=== PATIENT | female | born 1965 | race Two or more races ===

== ENCOUNTER 2021-09-27 11:29 | Outpatient (CLI) | payer MEDICAID | END 2021-09-27 23:59 | disposition home or self-care (01) | LOC: LAB 11:29 | PROVIDERS: ATTEND Specialist | DX: Z01.812 Encounter for preprocedural laboratory examination (principal); Z20.828 Contact with and (suspected) exposure to other viral communicable diseases | CPT/HCPCS: C9803; U0003 ==

== ENCOUNTER 2021-10-04 05:07 | Inpatient (IN) | payer MEDICAID ==
[~2021-10-04] VITALS: Ht 167.6 cm; Wt 77.1 kg
--- NOTE | 2021-10-04 05:50 | NUR ---
RN NOTE RECEIVED PT FOR DAY SURGERY FOR R-SHOULDER PROCEDURE. PT A/OX4. DENIES PAIN. DENIES SOB. ON ROOM AIR. AMBULATORY WITH STEADY GAIT. PREOP DONE. STARTED IV R-AC#20G WITH GOOD BLOOD RETURN. PT VERBALIZED UNDERSTANDING OF PROCEDURE AND SIGNED CONSENTS. ALL BELONGINGS RECORDED. PT IN NO ACUTE DISTRESS.
[2021-10-04] MEDS ORDERED: EPINEPHRINE (1:1000) 1 MG/ML AMPUL ONE (06:21)
[2021-10-04] MEDS ORDERED: BUPIVACAINE 0.5 % PF 150 MG/30 ML VIAL ONE (06:21)
[2021-10-04] MEDS ORDERED: ANESTHESIA TRAY IN PYXIS 1 EA TRAY MC ONE (06:22)
--- NOTE | 2021-10-04 06:25 | NUR ---
RN NOTE PT PICKED UP BY OR STAFF
[2021-10-04] MEDS ORDERED: FENTANYL PF 250MCG/5ML AMPUL ONE (06:34)
[2021-10-04] MEDS ORDERED: ROCURONIUM BROMIDE 50 MG/5 ML ONE (06:35)
[2021-10-04] MEDS ORDERED: HYDROMORPHONE 1 MG/1 ML DISP.SYRIN ONE (08:35)
[2021-10-04] MEDS ORDERED: FENTANYL PF 100MCG/2ML AMPUL ONE (09:06)
[2021-10-04] MEDS ORDERED: SENNOSIDES 8.6 MG TABLET PO PRN (09:30)
[2021-10-04] MEDS ORDERED: ACETAMINOPHEN 325 MG TABLET PO PRN ×2 (09:30→17:00)
[2021-10-04] MEDS ORDERED: DOCUSATE SODIUM 250 MG CAPSULE PO PRN (09:30)
[2021-10-04] MEDS ORDERED: BISACODYL SUPP (10 MG) 10 MG/SUPP.RECT SUPP.RECT RC PRN (09:30)
[2021-10-04] MEDS ORDERED: ZOLPIDEM TARTRATE 5 MG TABLET PO PRN (09:30)
--- NOTE | 2021-10-04 09:56 | NUR ---
MS/GLOBAL ACCOUNT MANAGER NOTES RECEIVED PATIENT VIA LAURITA, DID BEDSIDE ENDORSEMENT WITH MARIANA, OR NURSE. PATIENT IS S/P RIGHT SHOULDER ARTHROSCOPY WITH DR. NUÑEZ. RECEIVED PATIENT ALERT AND ORIENTED X4, ABLE TO MAKE NEEDS KNOWN. SLEEPY, BUT RESPONSIVE TO NAME, AND ABLE TO ANSWER QUESTIONS. RECEIVED ON 3LPM OF OXYGEN VIA NASAL CANNULA, I TITRATED TO 2 LPM. NO DISTRESS NOTED, PATIENT HAS NO DISCOMFORTS AT THIS TIME. V/S TAKEN FOLLOWS: BP-139/88, HR-74, RR-18, T-97.3, O2 SAT AT 100% ON 2 LPM. ORIENTED PATIENT TO THE UNIT. SAFETY MEASURES IN PLACED: BED LOCKED ON LOWEST POSITION, SIDE RAILS UPX2, CALL LIGHT AND TABLE WITHIN EASY REACH. WILL CONTINUE TO MONITOR.
[2021-10-04] MEDS: HYDROCODONE/APAP 5/325MG TABLET PO PRN ×3 (13:09→21:21)
[2021-10-04 16:00] VITALS: BP 123/74
[2021-10-04] MEDS ORDERED: OMEP20CA15 PO (16:07)
[2021-10-04] MEDS ORDERED: MELO-105 PO (16:07)
[2021-10-04] MEDS ORDERED: BUPR-319 PO (16:07)
[2021-10-04] MEDS ORDERED: GABA600T12 PO (16:07)
[2021-10-04] MEDS ORDERED: BUPR-54 PO (16:07)
[2021-10-04] MEDS ORDERED: Z GUARD REMEDY 4 OZ OINT TP PRN (17:00)
[2021-10-04] MEDS ORDERED: ONDANSETRON HCL/PF 4 MG/2 ML VIAL IVP PRN (17:00)
[2021-10-04] MEDS ORDERED: OMEPRAZOLE 20 MG CAPSULE.DR PO SCH (17:00)
[2021-10-04] MEDS ORDERED: MAG HYDROX/AL HYDROX/SIMETH 30 ML UDC PO PRN (17:00)
[2021-10-04] MEDS: PANTOPRAZOLE 40 MG TABLET.DR PO SCH (17:17)
[2021-10-04] MEDS: ONDANSETRON HCL/PF 4 MG/2 ML VIAL IVP PRN ×2 (17:30→21:35)
--- NOTE | 2021-10-04 19:25 | NUR ---
MS/RN OPENING NOTE RECEIVED PATIENT RESTING IN BED. AWAKE, ALERT AND ORIENTED X 4. ABLE TO MAKE NEEDS KNOWN. DENIES PAIN AT THIS TIME. CONTINUES ON ROOM AIR WITH NO S/SX OF RESPIRATORY DISTRESS NOTED. IV ACCESS TO LEFT HAND #20G INTACT, PATENT AND SALINE LOCKED. RIGHT SHOULDER SURGICAL SITE DRESSING CLEAN, DRY AND INTACT. SLING IN PLACE. CONTINUES ON REGULAR DIET WITH NO S/SX OF ASPIRATION OR N/V. CALL LIGHT WITHIN REACH. ASPIRATION, FALL AND SAFETY PRECAUTIONS MAINTAINED. WILL CONTINUE TO MONITOR.
--- NOTE | 2021-10-04 19:31 | NUR ---
MS/RN CLOSING NOTES PATIENT IN BED, A/OX4, ABLE TO MAKE NEEDS KNOWN. STABLE ON ROOM AIR. PATIENT IS S/P RIGHT SHOULDER ARTHROSCOPY WITH DR. NUÑEZ. IN NO DISTRESS NOTED, PATIENT HAS NO DISCOMFORTS AT THIS TIME. SURGICAL SIGHT ON RIGHT SHOULDER-DRESSING IS CLEAN, DRY AND INTACT. ALL NEEDS MET. KEPT PATIENT COMFORTABLE ALL THROUGHOUT THE SHIFT. SAFETY MEASURES IN PLACED: BED LOCKED ON LOWEST POSITION, SIDE RAILS UPX2, CALL LIGHT AND TABLE WITHIN EASY REACH. WILL ENDORSE TO THE NEXT SHIFT FOR ROGER.
[2021-10-04 20:00] VITALS: BP 113/72
[2021-10-04 20:20] LABS: CALCIUM, SERUM 8.3 mg/dL (8.5-10.1); CREATININE 0.8 mg/dL (0.6-1.3); POTASSIUM 4.1 mmol/L (3.5-5.1)
[2021-10-04] MEDS: IV D5/0.45 NACL 1,000 ML IV PRN (21:19)
[2021-10-04] MEDS ORDERED: MAGNESIUM HYDROXIDE 30 ML UDC PO PRN (22:00)
[2021-10-05] MEDS: HYDROCODONE/APAP 5/325MG TABLET PO PRN ×3 (01:48→10:27)
[2021-10-05] MEDS: IV D5/0.45 NACL 1,000 ML IV PRN (05:43)
--- NOTE | 2021-10-05 06:15 | NUR ---
MS/RN CLOSING NOTE PATIENT CURRENTLY RESTING IN BED. AWAKE, ALERT AND ORIENTED X 4. ABLE TO MAKE NEEDS KNOWN. DENIES PAIN AT THIS TIME. CONTINUES ON ROOM AIR WITH NO S/SX OF RESPIRATORY DISTRESS NOTED. IV ACCESS TO LEFT HAND #20G INTACT AND PATENT. CONTINUES ON IVF D5 1/2 NS @ 125ML/HR. RIGHT SHOULDER SURGICAL SITE DRESSING CLEAN, DRY AND INTACT. SLING IN PLACE. CONTINUES ON REGULAR DIET WITH NO S/SX OF ASPIRATION OR N/V. CALL LIGHT WITHIN REACH. ASPIRATION, FALL AND SAFETY PRECAUTIONS MAINTAINED. WILL ENDORSE PLAN OF CARE TO ONCOMING SHIFT.
[2021-10-05 07:01] LABS: BASOPHILS % (AUTO) 0.4 % (0.0-2.0); EOSINOPHILS % (AUTO) 1.4 % (0.0-6.0); HEMATOCRIT 31 % (33-45); HEMOGLOBIN 10.2 g/dL (11.5-14.8); LYMPHOCYTES # (AUTO) 2.2 K/uL (0.8-4.8); LYMPHOCYTES % (AUTO) 34.6 % (20.0-44.0); MEAN CORPUSCULAR HGB CONC 33 g/dl (31.0-36.0); MEAN CORPUSCULAR VOLUME 83 fL (82-100); MONOCYTES # (AUTO) 0.5 K/uL (0.1-1.30); MONOCYTES % (AUTO) 7.6 % (2.0-12.0); NEUTROPHILS # (AUTO) 3.5 K/uL (1.8-8.9); PLATELET COUNT (AUTO) 301 K/uL (150-450); RED BLOOD CELL COUNT(AUTO) 3.79 MIL/uL (4.0-5.2); WHITE BLOOD COUNT (AUTO) 6.2 K/uL (4.3-11.0)
[2021-10-05 07:20] LABS: CALCIUM, SERUM 8.3 mg/dL (8.5-10.1); CREATININE 0.8 mg/dL (0.6-1.3); PHOSPHORUS 4.1 mg/dL (2.5-4.9); POTASSIUM 3.8 mmol/L (3.5-5.1)
--- NOTE | 2021-10-05 07:44 | NUR ---
MS RN OPENING NOTE PATIENT CURRENTLY RESTING IN BE, AROUSABLE BY NAME TO A/O X 4. TOLERATING WELL ON ROOM AIR WITH NO S/S OF RESPIRATORY DISTRESS. BREATHING EVEN AND UNLABORED WITH NO COMPLAINTS OF PAIN OR DISCOMFORT AT THIS TIME. L HAND # 20 G IV CLEAN, INTACT AND FLUSHING WELL WITH D5 1/2 NS @ 125ML/HR. RIGHT SHOULDER SURGICAL SITE DRESSING CLEAN, DRY AND INTACT. SLING IN PLACE. CONTINUES ON REGULAR DIET WITH NO S/SX OF ASPIRATION OR N/V. CALL LIGHT WITHIN REACH, SIDE RAILS UP X 2, BED IN LOWEST LOCKED POSITION. ASPIRATION, FALL AND SAFETY PRECAUTIONS MAINTAINED. WILL CONTINUE TO MONITOR.
[2021-10-05] MEDS: GABAPENTIN 300 MG CAPSULE PO SCH ×2 (08:38→13:04)
[2021-10-05] MEDS: PANTOPRAZOLE 40 MG TABLET.DR PO SCH (08:40)
[2021-10-05] MEDS ORDERED: Medication Not On Formulary EA (Bupropion Hcl (Bupropion Xl) 1 TAB) PO SCH (09:00)
[2021-10-05] MEDS ORDERED: BUPROPION XL 150 MG TAB.ER.24 PO SCH ×2 (09:00)
--- NOTE | 2021-10-05 10:31 | NUR ---
MS RN NOTE PATIENT COMPLAINT OF 03/25 RIGHT SHOULDER PAIN AND REQUESTING MEDICATION. PRN NORCO 5/325 TWO TABS PO ADMINISTERED ORDERED. WILL CONTINUE TO MONITOR FOR S/S OF PAIN.
--- NOTE | 2021-10-05 14:10 | NUR ---
MS RAG COLLECTOR NOTES PATIENT MADE AWARE OF MD DISCHARGE INSTRUCTIONS AND CONFIRMED UNDERSTANDING VERBALLY AND VIA SIGNATURE. PATIENT VERBALIZED POSSESSION OF ALL BELONGINGS AND CONFIRMED VIA SIGNATURE. EDUCATION PROVIDED ON ALL MEDICATIONS INCLUDING NAMES, DOSAGES, ROUTES, FREQUENCIES, INDICATIONS AND SIDE EFFECTS. PATIENT VERBALIZED UNDERSTANDING. SALINE LOCK AND ID BAND REMOVED. ALL DISCHARGE PAPERWORK PROVIDED TO PATIENT. PATIENT VITAL SIGNS STABLE AND NO COMPLAINTS OF PAIN OR DISCOMFORT AT THIS TIME. PATIENT TRANSPORTED OFF OF FLOOR VIA WHEELCHAIR BY QUALITY CONTROL.
== END 2021-10-05 14:30 | disposition home or self-care (01) | DRG 315 ==
LOC: DS 05:07 → MED 05:15
PROVIDERS: ADMIT Internal Medicine; ATTEND Internal Medicine
PROC: 0LQ14ZZ Repair Right Shoulder Tendon, Percutaneous Endoscopic Approach (ICD-10-PCS; principal; 2021-10-04)
PROC: 0MB14ZZ Excision of Right Shoulder Bursa and Ligament, Percutaneous Endoscopic Approach (ICD-10-PCS; 2021-10-04)
PROC: 0RCJ4ZZ Extirpation of Matter from Right Shoulder Joint, Percutaneous Endoscopic Approach (ICD-10-PCS; 2021-10-04)
PROC: 0RNJ4ZZ Release Right Shoulder Joint, Percutaneous Endoscopic Approach (ICD-10-PCS; 2021-10-04)
PROC: 0PB94ZZ Excision of Right Clavicle, Percutaneous Endoscopic Approach (ICD-10-PCS; 2021-10-04)
DX: M19.111 Post-traumatic osteoarthritis, right shoulder (principal); D64.9 Anemia, unspecified; E66.9 Obesity, unspecified; S46.011A Strain of muscle(s) and tendon(s) of the rotator cuff of right shoulder, initial encounter; G62.9 Polyneuropathy, unspecified; G89.4 Chronic pain syndrome; M75.51 Bursitis of right shoulder; X58.XXXA Exposure to other specified factors, initial encounter; Y93.9 Activity, unspecified; Y92.009 Unspecified place in unspecified non-institutional (private) residence as the place of occurrence of the external cause; M75.41 Impingement syndrome of right shoulder; M75.01 Adhesive capsulitis of right shoulder; Z68.27 Body mass index [BMI] 27.0-27.9, adult; M77.8 Other enthesopathies, not elsewhere classified
CPT/HCPCS: 36415; 80048-TC; 83735-TC; 84100-TC; 84703-TC; 85025-TC; 87081-TC; A4217; A4565; C1713; G0378; J0171; J0330; J0690; J1100; J1170; J2370; J2405; J2704; J3010; J3490; J7030

== ENCOUNTER 2023-01-06 04:02 | Inpatient (IN) | payer MEDICAID ==
[~2023-01-06 04:02] MED LIST: BUPR-319 PO; BUPR-54 PO; GABA600T12 PO; MELO-105 PO; OMEP20CA15 PO
--- NOTE | 2023-01-06 05:42 | NUR ---
DAY SURGERY ADMISSION NOTE PATIENT CAME IN UNIT AT AROUND 0415, AMBULATORY FOR RIGHT SHOULDER REVERSE TOTAL ARTHROPLASTY. NO S/S OF APPARENT DISTRESS IN ROOM AIR, BREATHING EVEN AND UNLABORED. NO C/O PAIN AT THIS TIME. LAST MEAL WAS YESTERDAY 1800 PER PATIENT. IV ACCESS ESTABLISHED ON LEFT HAND #20G. PATIENT BELONGINGS CHECKED. ID BAND ON PATIENT. CONSENTS SIGNED. PATIENT ORIENTED IN THE UNIT AND THE USE OF CALL LIGHT. WILL CONTINUE WITH PLAN.
[2023-01-06] MEDS ORDERED: ANESTHESIA TRAY IN PYXIS 1 EA TRAY MC ONE (06:12)
[2023-01-06] MEDS ORDERED: POLYMYXIN B SULFATE 500,000 UNITS ONE (06:13)
[2023-01-06] MEDS ORDERED: Magnesium 1 GM/2 ML VIAL ONE (06:17)
[2023-01-06] MEDS ORDERED: ROPIVACAINE HCL 0.5% 5 MG/ML 30ML VIAL ONE (06:17)
[2023-01-06] MEDS ORDERED: KETAMINE HCL (500MG/10ML) 50 MG/ML VIAL ONE (06:17)
[2023-01-06] MEDS ORDERED: TRANEXAMIC ACID 1,000 MG/10 ML VIAL ONE ×2 (06:17→08:06)
[2023-01-06] MEDS ORDERED: FENTANYL PF 100MCG/2ML AMPUL ONE (06:17)
[2023-01-06] MEDS ORDERED: FAMOTIDINE/PF INJ 20 MG/2 ML VIAL IV ONE (06:18)
[2023-01-06] MEDS ORDERED: LABETALOL HCL IV 100MG VIAL ONE (07:13)
--- NOTE | 2023-01-06 07:27 | NUR ---
noc rn note patient picked up by 4 OR personnels at around 0600. Report given to diane for continuity of care.
--- NOTE | 2023-01-06 07:30 | NUR ---
MS RN NOTE RECEIVED PATIENT ENDORSED BY DRIER TRANSFER CAR OPERATOR RN, PATIENT IN THE OR FOR RIGHT SHOULDER TOTAL ARTHROPLASTY.
[2023-01-06 08:25] VITALS: BP 113/66; TEMP 98.6
[2023-01-06] MEDS ORDERED: IV D5/0.45 NACL 1,000 ML IV PRN (09:00)
[2023-01-06] MEDS ORDERED: ZOLPIDEM TARTRATE 5 MG TABLET PO PRN (09:00)
[2023-01-06] MEDS ORDERED: HYDROCODONE/APAP 5/325MG TABLET PO PRN (09:00)
[2023-01-06] MEDS ORDERED: ONDANSETRON HCL/PF 4 MG/2 ML VIAL IV PRN (09:00)
[2023-01-06] MEDS ORDERED: DOCUSATE SODIUM 250 MG CAPSULE PO PRN (09:00)
[2023-01-06] MEDS ORDERED: ACETAMINOPHEN 325 MG TABLET PO PRN (09:00)
[2023-01-06] MEDS ORDERED: BISACODYL SUPP (10 MG) 10 MG/SUPP.RECT SUPP.RECT RC PRN (09:00)
[2023-01-06] MEDS ORDERED: SENNOSIDES 8.6 MG TABLET PO PRN (09:00)
--- NOTE | 2023-01-06 09:35 | NUR ---
MS RN NOTES RECEIVED PATIENT FROM OR S/P RIGHT SHOULDER TOTAL ARTHROPLASTY, AWAKE, ALERT, ORIENTED X4, ABLE TO MAKE NEEDS KNOWN. DENIES DISCOMFORT AT THIS TIME. DRESSING INTACT ON RIGHT SHOULDER, NO BLEEDING NOTED. VITAL SIGNS TAKEN BP-100/60 HR-71, O2 SAT 96% ON ROOM AIR. WILL CONTINUE TO MONITOR PATIENT.
[2023-01-06] MEDS: ASPIRIN 325 MG TABLET PO SCH (10:53)
[2023-01-06] MEDS: BUPROPION XL 150 MG TAB.ER.24 PO SCH (11:30)
[2023-01-06] MEDS: GABAPENTIN 300 MG CAPSULE PO SCH ×2 (12:21→17:06)
[2023-01-06 16:09] VITALS: BP 94/62; TEMP 98.4
[2023-01-06] MEDS: MELOXICAM 7.5 MG TABLET PO SCH (17:07)
--- NOTE | 2023-01-06 18:58 | NUR ---
MS RN CLOSING NOTES PATIENT RESTING IN BED. AWAKE, ALERT, ORIENTED X4, ABLE TO MAKE NEEDS KNOWN. TOLERATING ROOM AIR, NO SOB NOTED. DENIES DISCOMFORT AT THIS TIME.S/P RIGHT SHOULDER TOTAL ARTHROPLASTY, DRESSING INTACT ON RIGHT SHOULDER, NO BLEEDING NOTED. IV ACCESS ON HAND G#20 RUNNING D5 1/2 NS AT 125ML/HR , PATENT AND INTACT. NEEDS ATTENDE AND PROVIDED. WILL CONTINUE TO MONITOR PATIENT.
[2023-01-06] MEDS: HYDROCODONE/APAP 5/325MG TABLET PO PRN (19:34)
--- NOTE | 2023-01-06 19:36 | NUR ---
noc rn note- pain management and possible discrepancy patient c/o 5/10 pain when I rounded. Pulled out 1 [place] 5 tab instead of the order of 2 tab. had to open the [facility] again to pull out another tab of [place] 5. 7 tabs in total left in [facility], actual total count of 7.
[2023-01-06 20:00] VITALS: BP 98/63; TEMP 98.4
--- NOTE | 2023-01-07 00:25 | NUR ---
noc rn note patient c/o severe pain and does not want pill. requested for IV pain medication. hospitalist ordered Morphine 4mg IV Q2HR PRN. awaiting pharmacy to verify.
[2023-01-07] MEDS: MORPHINE SULFATE INJ 4 MG/ML DISP.SYRIN IV PRN ×5 (00:31→19:12)
--- NOTE | 2023-01-07 00:35 | NUR ---
noc rn note- pain management patient c/o severe pain on her right shoulder surgical site. restless, irritability with facial grimacing and moaning noted. Given Morphine 4mg IV as ordered PRN. will re-assess.
[2023-01-07] MEDS: HYDROCODONE/APAP 5/325MG TABLET PO PRN (03:51)
--- NOTE | 2023-01-07 03:55 | NUR ---
noc rn note- pain management patient c/o 5/10 pain on right shoulder surgical site. given [place] 5 X2 tab as ordered PRN. will reassess.
[2023-01-07 06:58] LABS: CALCIUM, SERUM 8.4 mg/dL (8.5-10.1); CREATININE 0.7 mg/dL (0.6-1.3); MAGNESIUM 2.3 mg/dL (1.8-2.4); PHOSPHORUS 3.5 mg/dL (2.5-4.9); POTASSIUM 3.9 mmol/L (3.5-5.1)
--- NOTE | 2023-01-07 07:12 | NUR ---
noc rn closing patient a/ox4, no s/s of apparent distress, breathing even and unlabored. pain managed with medications. needs attended. patient plan for D/C this am. will endorse to LAURA Bartholomew for continuity of care.
[2023-01-07] MEDS ORDERED: PANTOPRAZOLE 40 MG TABLET.DR PO SCH (07:30)
--- NOTE | 2023-01-07 07:44 | NUR ---
RN opening note received patient awake in bed, a/ox4. patient has no s/s of apparent distress in room air, breathing even and unlabored. no complaint of pain or difficulty of breathing at this time. IV access at left hand g#20 -SL patent and intact. s/p right shoulder total arthroplasty dressing intact on right shoulder, no bleeding noted. safety measures in place, bed in lowest, locked position, call light within reach. side rails up X2. will continue with patient's plan of care.
--- NOTE | 2023-01-07 07:58 | NUR ---
RN NOTE patient c/o severe pain on her right shoulder surgical site. restless, irritability with facial grimacing and moaning noted. rate pain from 8/10. Given Morphine 4mg IV as ordered PRN. will continue to monitor patient.
[2023-01-07 08:09] VITALS: BP 105/70; TEMP 97
[2023-01-07] MEDS: GABAPENTIN 300 MG CAPSULE PO SCH ×3 (08:33→16:11)
[2023-01-07] MEDS: BUPROPION XL 150 MG TAB.ER.24 PO SCH (08:33)
[2023-01-07] MEDS: ASPIRIN 325 MG TABLET PO SCH (08:33)
[2023-01-07] MEDS ORDERED: BUPROPION XL 150 MG TAB.ER.24 PO SCH (09:00)
[2023-01-07] MEDS ORDERED: Medication Not On Formulary EA (Bupropion Hcl (Bupropion Xl) 1 TAB) PO SCH (09:00)
[2023-01-07] MEDS: MELOXICAM 7.5 MG TABLET PO SCH ×2 (09:38→16:11)
[2023-01-07 09:54] LABS: BASOPHILS # (AUTO) 0.1 K/uL (0.0-0.2); BASOPHILS % (AUTO) 0.8 % (0.0-2.0); EOSINOPHILS % (AUTO) 0.3 % (0.0-6.0); HEMATOCRIT 35 % (33-45); HEMOGLOBIN 11.7 g/dL (11.5-14.8); LYMPHOCYTES # (AUTO) 2.6 K/uL (0.8-4.8); MEAN CORPUSCULAR HGB CONC 33 g/dl (31.0-36.0); MEAN CORPUSCULAR VOLUME 94 fL (82-100); MONOCYTES # (AUTO) 0.7 K/uL (0.1-1.30); MONOCYTES % (AUTO) 7.1 % (2.0-12.0); NEUTROPHILS # (AUTO) 6.5 K/uL (1.8-8.9); NEUTROPHILS % (AUTO) 65.8 % (43.0-81.0); PLATELET COUNT (AUTO) 235 K/uL (150-450); RED BLOOD CELL COUNT(AUTO) 3.75 MIL/uL (4.0-5.2); WHITE BLOOD COUNT (AUTO) 9.9 K/uL (4.3-11.0)
[2023-01-07 16:00] VITALS: BP 110/80; TEMP 98
--- NOTE | 2023-01-07 18:36 | NUR ---
RN CLOSING NOTE patient awake in bed, resting and using her phone, a/ox4. patient has no s/s of apparent distress in room air, breathing even and unlabored. no complaint of pain or difficulty of breathing at this time. IV access at left hand g#20 -SL patent and intact. s/p right shoulder total arthroplasty dressing intact on right shoulder, no bleeding noted. safety measures in place, bed in lowest, locked position, call light within reach. side rails up X2. will endorse to the shift manager nurse for katie.
--- NOTE | 2023-01-07 19:01 | NUR ---
RN NOTE PATIENT INSIST TO GET HER MORPHINE IV BEFORE SHE LEAVE THE HOSPITAL. I ALREADY EXPLAINED THE SIDE EFFECTS OF MEDICATIONS BUT STILL KEEP ON INSISTING TO GET A MORPHINE SHOT. INFORMED MARIMAR (CHARGE NURSE) ABOUT THE SITUATION. SHE AGREED TO GIVE HER MORPHINE BUT PATIENT NEEDS TO STAY FOR 30 MINUTES- 1HOUR. PATIENT AGREED.
--- NOTE | 2023-01-07 20:04 | NUR ---
MS FINANCIAL SUPERVISOR DISCHARGE NOTES, PT DISCHARGED HOME IN STABLE CONDITION. A/O X4. ABLE TO MAKE NEEDS KNOWN. ON ROOM AIR, TOLERATING WELL, NO SOB NOTED. NO SKIN ISSUES NOTED. ALL BELONGINGS ACCOUNTED FOR AND PT SIGNED BELONGINGS LIST. IV ACCESS ON L HAND G#20 REMOVED WITH NO ACTIVE BLEEDING NOTED, DRY DRESSING APPLIED AT SITE. HEALTH TEACHINGS/DISCHARGE INSTRUCTIONS GIVEN TO PT, VERBALIZED UNDERSTANDING. NAME ARMBAND REMOVED. PT LEFT UNIT @ ---- VIA WHEELCHAIR ACCOMPANIED BY TEJAS GREEN-- TO BALJINDER, PATIENT'S FRIEND NICHOLE, WILL TAKE PATIENT HOME. CHARGE NURSE AND DOCTOR AWARE OF D/C.
== END 2023-01-07 20:00 | disposition home or self-care (01) | DRG 322 ==
LOC: DS 04:02 → MED 04:09 → DS 04:09 → MED 07:00 → UNDOADMIN 01-07 04:02 → MED 01-07 20:00 → DS 01-07 20:00 → MED 01-08 15:26 → UNDOADMIN 01-08 15:26
PROVIDERS: ADMIT Student in an Organized Health Care Education/Training Program; ATTEND Nurse Practitioner Acute Care
PROC: 0RRJ00Z Replacement of Right Shoulder Joint with Reverse Ball and Socket Synthetic Substitute, Open Approach (ICD-10-PCS; principal; 2023-01-06)
PROC: 0LS30ZZ Reposition Right Upper Arm Tendon, Open Approach (ICD-10-PCS; 2023-01-06)
DX: M12.811 Other specific arthropathies, not elsewhere classified, right shoulder (principal); D50.9 Iron deficiency anemia, unspecified; F32.A Depression, unspecified; M81.0 Age-related osteoporosis without current pathological fracture; Z98.1 Arthrodesis status
CPT/HCPCS: 36415; 80048-TC; 83735-TC; 84100-TC; 85025-TC; 87081-TC; 97110-TC; 97116-TC; 97530-TC; G0378; J0690; J1100; J1885; J2270; J2370; J2405; J2704; J2765; J2795; J3010; J3475; J3490; J7030; J7050